=== PATIENT | female | born 2000 | race Hispanic/Latino ===

== ENCOUNTER 2020-03-15 18:53 | Emergency (ER) | payer SELFPAY ==
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
[2020-03-15 21:44] VITALS: TEMP 100.6
== END 2020-03-15 21:26 | disposition expired ==
LOC: ER 18:53 → EDBD 18:53 → ER 21:26
PROC: 0BH17EZ Insertion of Endotracheal Airway into Trachea, Via Natural or Artificial Opening (ICD-10-PCS; principal; 2020-03-15)
PROC: 5A1935Z Respiratory Ventilation, Less than 24 Consecutive Hours (ICD-10-PCS; 2020-03-15)
DX: I46.8 Cardiac arrest due to other underlying condition (principal)
CPT/HCPCS: 31500; 92950; 96374; 99285; G0390